=== PATIENT | male | born 1970 | race Caucasian/White ===

== ENCOUNTER 2023-02-11 09:26 | Emergency (ER) | payer BC, SELFPAY ==
[2023-02-11 09:45] VITALS: BP 132/92; PULSE 103; RESP 18; TEMP 36.8; O2SAT 98; BMI 22.2
[2023-02-11 10:08] LABS: UTC Influenza A Antigen Negative (Negative)
[2023-02-11 10:09] LABS: UTC Influenza B Antigen Negative (Negative)
--- NOTE | 2023-02-11 10:14 | EXP.UTC ---
Discharge Plan Disposition Patient Disposition: Home, Self-Care Condition: Good Prescriptions Prescriptions: New azithromycin [Zithromax] 250 mg tablet 250 mg PO UD DOSE PK Qty: 6 0RF Rx Instructions: Take two (2) tablets today, then one (1) tablet days #2 thru #5 benzonatate [benzonatate] 100 mg capsule 100 mg PO TIDP PRN (Reason: Cough) Qty: 30 0RF methylprednisolone 4 mg Tablets,Dose Pack 4 mg PO DIRECTED 6 Days Qty: 21 0RF Rx Instructions: Take 1 pack as directed for 6 days guaifenesin [Mucinex] 600 mg tablet extended release 12hr 600 - 1,200 mg PO BIDP PRN (Reason: Congestion) Qty: 30 0RF Referrals Follow up/Referrals: Kimberly Tsai APRN [Primary Care Provider] - See instructions Activity Restrictions/Add. Instructions Additional Instructions/Restrictions: Drink plenty of fluids. Take tylenol or ibuprofen for pain or fever. Take the medications as directed. Follow up with your regular doctor. GO TO THE ER FOR ANY WORSENING SYMPTOMS Clinical Impressions Clinical Impression: Sinusitis, Bronchitis, Acute viral syndrome Instructions Patient Instructions: Sinusitis, DI for Sinusitis Discharge ED Provider: Cory Gibbons [facility] [place] General Stated complaint: cough, congestion, skin sensativity Mode of Arrival: Ambulatory Source of Information: Patient Limitations: No Limitations Time Seen by Provider: 02/11/23 10:14 Description of Symptoms (Recalled from Triage Doc. by RN): Pt stated that since wednesday he has had sinus pressure, sink ache, nasuea, body aches, diarrhea, and coughing. HEENT Symptoms (Recalled from RN notes): Yes Resp Symptoms (Recalled from RN notes): No Skin Symptoms (Recalled from RN notes): No MS Symptoms (Recalled from RN notes): No Functional Status (Recalled from RN notes): n/a History of Present Illness Provider Complaint: He states that for the past 4 days he has had sinus pressure, nausea, body aches, diarrhea, chest congestion and coughing. He denies fever. He denies shortness of breath. Related Data Previous Rx's Medication Instructions Recorded azithromycin 250 mg tablet 250 mg PO UD DOSE PK #6 tabs 02/11/23 (Zithromax) benzonatate 100 mg capsule 100 mg PO TIDP PRN Cough #30 caps 02/11/23 guaifenesin 600 mg tablet, 600 - 1,200 mg PO BIDP PRN 02/11/23 extended release 12 hr (Mucinex) Congestion #30 tabs methylprednisolone 4 mg tablets in 4 mg PO DIRECTED 6 days #21 tabs 02/11/23 a dose pack Allergies Allergy/AdvReac Type Severity Reaction Status Date / Time No Known Allergies Allergy Verified 02/11/23 09:59 Worker's Comp Is this a Worker's Comp case?: No [facility] Disclaimer: The information contained in this section may have been updated after the patient was seen, as this information can be updated by other users. Medical History (Updated 02/11/23 @ 10:30 by Cory Gibbons APRN) Hernia Social History Smoking Status: Never smoker alcohol intake: never current occupational status: employed Travel in the last 8 weeks: None ROS Obtained: Yes All systems reviewed & no additional complaints except as documented Constitutional Constitutional: Reports poor appetite Eyes Eyes: Reports system reviewed and no additional complaints, except as documented ENT Ears, Nose, Mouth, and Throat: Reports as per HPI Cardiovascular Cardiovascular: Reports system reviewed and no additional complaints, except as documented and Denies chest pain Respiratory Respiratory: Denies shortness of breath, Reports chest congestion, Reports cough, Denies stridor and Denies wheezing Gastrointestinal Gastrointestingal: Reports system reviewed and no additional complaints, except as documented; Denies abdominal pain, diarrhea or vomiting Musculoskeletal Musculoskeletal: Reports system reviewed and no additional complaints, except as documented and Denies arthralgias Integumentary/Breasts Skin/Breast: Reports system reviewed and no additional complaints, except as documented and Denies rash Neurologic Neurologic: Denies paresthesias Allergic/Immunologic Allergic/Immunologic: Denies wheezing Physical Exam General General appearance: alert and in no apparent distress Eye Eye exam: Present normal appearance, PERRL and EOMI ENT ENT exam: Present mucous membranes moist and normal external ear exam Expanded ENT Exam External ear exam: Present normal external inspection TM/Canal exam: Bilateral TM: erythema and bulging Nose exam: Absent sinus tenderness Nasal speculum exam: Bilateral: normal Mouth exam: Present normal external inspection; Absent drooling Teeth exam: Present normal inspection Throat exam: Present tonsillar erythema and tonsillomegaly Neck Neck exam: Present normal inspection, full ROM and trachea midline; Absent tenderness, lymphadenopathy or thyromegaly Chest Chest inspection: Present normal inspection and symmetric chest wall rise; Absent tenderness or rash Respiratory Respiratory exam: Present normal lung sounds bilaterally; Absent respiratory distress, wheezes, stridor or accessory muscle use Cardiovascular Cardiovascular exam: Present regular rate, normal rhythm and normal heart sounds Abdominal Exam Abdominal exam: Present soft; Absent distention, tenderness, guarding, rebound or rigidity Extremities Exam Extremities exam: Present normal inspection, full ROM and normal capillary refill; Absent tenderness or calf tenderness Back Exam Back exam: Present normal inspection and full ROM; Absent tenderness Neurological Exam Neurological exam: Present alert and oriented X3 Psychiatric Psychiatric exam: Present normal affect and normal mood Skin Skin exam: Present warm, dry, intact and normal color Lymphatic Lymphatic Findings: no adenopathy Medical Decision Making Medical Records Medical records reviewed: No I reviewed the patient's medical records. [place] Inquiry Pt receiving controlled substance: No Vital Signs: 02/11/23 09:45 Temperature 98.3 F Temperature Source Oral Pulse Rate [Right Radial] 103 H Respiratory Rate 18 Blood Pressure [Right Arm] 132/92 H Blood Pressure Mean [Right Arm] 105 Blood Pressure Source [Right Arm] Automatic Cuff Blood Pressure Position [Right Arm] Sitting 02 Sat by Pulse Oximetry 98 Oxygen Delivery Method Room Air Lab Data Lab results reviewed: Yes I reviewed the patient's lab results. Lab Results 02/11/23 09:51: Influenza Type A Ag Negative, Influenza Type B Ag Negative
[2023-02-11 10:57] VITALS: BP 132/92; PULSE 96; RESP 18; TEMP 36.7; O2SAT 98
== END 2023-02-11 10:55 | disposition home or self-care (01) ==
PROVIDERS: Emergency Provider Nurse Practitioner Family; PCP Nurse Practitioner
DX: J20.9 Acute bronchitis, unspecified (principal); J01.90 Acute sinusitis, unspecified; R11.0 Nausea; R19.7 Diarrhea, unspecified; R05.9 Cough, unspecified; R09.81 Nasal congestion; M79.18 Myalgia, other site; R09.89 Other specified symptoms and signs involving the circulatory and respiratory systems; B34.9 Viral infection, unspecified
CPT/HCPCS: 87635; 87804; 99204; 99212; G0463

== ENCOUNTER 2023-03-02 21:48 | Outpatient (CLI) | payer BC, SELFPAY ==
[2023-03-02 17:33] LABS: Chloride 104 mmol/L (98-107); Potassium 4.6 mmoL/L (3.5-5.1); Sodium 136 mmol/L (136-145)
[2023-03-02 17:35] LABS: Blood Urea Nitrogen 7 mg/dl (9-20); Estimated Glomerular Filt Rate 141 ml/min (>60); GFR (African American) 171 ML/MIN (>60)
[2023-03-02 17:36] LABS: Alanine Aminotransferase 34 U/L (12-78); Albumin Level 3.8 g/dl (3.5-5.0); Albumin/Globulin Ratio 1.1 (1.1-1.8); Alkaline Phosphatase 79 U/L (38-126); Anion Gap 13.6 mEq/L (5-15); Aspartate Amino Transferase 40 U/L (17-59); Bilirubin,Total 0.4 mg/dl (0.2-1.3); Carbon Dioxide 23 mmol/L (22.0-30.0); Cholesterol 224 mg/dl (140-200); Globulin 3.5 g/dL (1.3-3.2); Total Protein,Serum 7.3 g/dl (6.3-8.2); Triglycerides 85 mg/dl (30-150); VLDL Cholesterol 17 mg/dL (0-40)
[2023-03-02 17:37] LABS: Calcium 8.6 mg/dl (8.4-10.2); Chol/HDL Ratio 3.2 (1-3.5); Glucose 110 mg/dl (74-100); HDL Cholesterol 71 mg/dl (40-60)
[2023-03-02 17:38] LABS: Basophils % 0.3 % (0.1-2.0); Eosinophils # 0.1 K/mm3 (0.0-0.4); Hematocrit 41.7 % (42.0-52.0); Lymphocytes # 1.3 K/mm3 (0.7-4.5); Mean Corpuscular HGB Conc 33.6 g/dL (31.8-35.4); Mean Corpuscular Hemoglobin 35.5 pg (27.0-31.2); Mean Corpuscular Volume 105.9 fl (80-94); Monocytes # 0.6 K/mm3 (0.1-1.0); Neutrophils # 3.5 K/mm3 (1.8-7.8); Neutrophils % 64.6 % (37.0-80.0); Platelet Count 280 K/mm3 (142-424); Red Blood Count 3.94 M/mm3 (4.60-6.20); White Blood Count 5.4 K/mm3 (4.8-10.8)
[2023-03-02 17:48] LABS: Direct LDL Cholesterol 122.95 mg/dL (100-129)
[2023-03-02 18:07] LABS: Prostate Specific Ag Screen 6.2 ng/ml (0.0-4.0)
[2023-03-02 18:09] LABS: Thyroid Stimulating Hormone 2.48 uIU/mL (0.465-4.68)
[2023-03-02 18:31] LABS: Hemoglobin A1C 5.6 % (4.0-6.0)
[2023-03-05 05:22] LABS: Neisseria gonorrhoeae, NAA Negative (Negative)
== END 2023-03-02 23:59 ==
LOC: LAB.DROPOF 21:48
PROVIDERS: PCP Nurse Practitioner; Visit Provider Nurse Practitioner
DX: R10.2 Pelvic and perineal pain (principal); Z13.1 Encounter for screening for diabetes mellitus; Z13.220 Encounter for screening for lipoid disorders; Z13.29 Encounter for screening for other suspected endocrine disorder; Z11.3 Encounter for screening for infections with a predominantly sexual mode of transmission; R06.89 Other abnormalities of breathing; R80.9 Proteinuria, unspecified; B96.89 Other specified bacterial agents as the cause of diseases classified elsewhere; D64.9 Anemia, unspecified; R73.09 Other abnormal glucose; E78.5 Hyperlipidemia, unspecified; R97.20 Elevated prostate specific antigen [PSA]; Z12.5 Encounter for screening for malignant neoplasm of prostate
CPT/HCPCS: 80053; 80061; 83036; 84443; 85025; 87086; 87491; 87591; G0103

== ENCOUNTER 2023-03-22 09:15 | Outpatient (CLI) | payer BC, SELFPAY ==
--- NOTE | 2023-03-22 09:22 | XR_ITS ---
FINAL REPORT CLINICAL HISTORY: diminished breath sounds left mid/lower lung field smoker FINDINGS: 2 views of the chest were obtained . The heart is normal in size. The mediastinum is within normal limits. There is bronchial wall thickening likely representing bronchitis. There is no pneumothorax. Osseous structures are unremarkable. IMPRESSION: Bronchial wall thickening likely representing bronchitis. Reviewed, Interpreted and Dictated by Rehan Up III, MD Transcribed by Nika Camacho Authenticated and [facility]
== END 2023-03-22 23:59 ==
LOC: RAD 09:15
PROVIDERS: PCP Nurse Practitioner; Visit Provider Nurse Practitioner
DX: R06.89 Other abnormalities of breathing (principal)
CPT/HCPCS: 71046

== ENCOUNTER 2023-03-29 14:46 | Outpatient (CLI) | payer BC, SELFPAY ==
[2023-03-22 10:39] LABS: Microscopic, Urine URINE MICROSCOPIC (MICROSCOPIC)
[2023-03-22 10:56] LABS: Appearance,Urine CLEAR (Clear); Bilirubin,Urine Negative (Negative); Blood, Urine Negative (Negative); Color,Urine YELLOW (Yellow); Glucose,Urine (UA) Negative (Negative); Ketones,Urine Negative (Negative); Leukocyte Esterase,Urine Negative (Negative); Nitrate,Urine Negative (Negative); Protein,Urine 1+ (Negative); Urobilinogen,Urine 0.2 EU/dl (0.2)
[2023-03-22 12:35] LABS: Bacteria,Urine Trace /lpf; Squamous Epithelial Cell,Urine Occasional #/hpf (0-5)
== END 2023-03-29 23:59 ==
LOC: LAB.DROPOF 14:46
PROVIDERS: PCP Urology; Visit Provider Urology
DX: R32 Unspecified urinary incontinence (principal)
CPT/HCPCS: 81001